=== PATIENT | male | born 1940 | race African-American/Black ===

== ENCOUNTER 2017-07-10 12:38 | Emergency (ER) | payer MEDICARE, MEDICAID ==
[~2017-07-10] VITALS: Ht 167.6 cm; Wt 87.0 kg
[~2017-07-10 12:38] MED LIST: ASPIRIN; METF10002 PO; METOPROLOL; NIACIN; TAMS-11
[2017-07-10 12:43] VITALS: BP 141/88
[2017-07-10] MEDS ORDERED: PREDNISONE 20MG TABLET PO STA (13:11)
[2017-07-10] MEDS ORDERED: IPRATROPIUM/ALBUTEROL 0.5-3(2.5)MG/3ML NEB HHN ONE (13:15)
[2017-07-10] MEDS ORDERED: LEVOFLOXACIN 250MG TABLET PO ONE (13:15)
[2017-07-10] MEDS ORDERED: IBUPROFEN 800MG TABLET PO ONE (13:15)
[2017-07-10 13:43] LABS: BG BASE EXCESS 1.1 mmol/L (-2.0-2.0); BG CARBOXYHEMOGLOBIN 0.6 % (0.5-1.5); BG DEOXYHEMOGLOBIN 4.5 % (0.0-5.0); BG FRACTION INSPIRED OXYGEN 21; BG HCO3 ACT 25.6 mmol/L (22.0-26.0); BG METHEMOGLOBIN 0.3 % (0.0-1.5); BG OXYGEN SATURATION 95.5 % (92.0-98.5); BG OXYHEMOGLOBIN 94.6 % (94.0-97.0); BG PCO2 40.2 mmHg (35.0-45.0); BG PH 7.422 (7.350-7.450); BG PO2 79.9 mmHg (75.0-100.0); BG SAMPLE SITE RIGHT RADIAL; BG TOTAL HEMOGLOBIN 12.9 g/dL (12.0-18.0); BG VENT MODE ROOM AIR
[2017-07-10 14:07] LABS: BASOPHILS % 0.2 % (0.0-2.0); EOSINOPHILS % 3.5 % (0.0-5.0); HEMATOCRIT. 35.8 % (42.0-52.0); LYMPHOCYTES % 39.9 % (20.0-50.0); MEAN CORPUSCULAR HEMOGLOBIN 29.4 pg (28.0-32.0); MEAN CORPUSCULAR VOLUME 87.7 fL (80.0-94.0); MEAN PLATELET VOLUME 9.4 fl (7.4-10.4); MONOCYTES % 9.7 % (2.0-8.0); NEUTROPHILS % 46.7 % (40.0-76.0); PLATELET 181 x1000/uL (130-400); RED BLOOD CELL COUNT 4.08 mill/uL (4.7-6.1); RED CELL DISTRIBUTION WIDTH 14.8 % (11.6-14.6)
[2017-07-10 14:16] LABS: INR 1.1; PARTIAL THROMBOPLASTIN TIME 23.4 sec (23.4-31.0)
[2017-07-10 14:25] LABS: CARBON DIOXIDE 32 mEq/L (21-32); CHLORIDE 107 mEq/L (98-107); CREATINE KINASE 156 IU/L (39-308); TROPONIN I < 0.02 ng/mL (0.00-0.04)
== END 2017-07-10 15:37 | disposition home or self-care (01) ==
LOC: ER 14:31
DX: J40 Bronchitis, not specified as acute or chronic (principal); E11.9 Type 2 diabetes mellitus without complications; I11.9 Hypertensive heart disease without heart failure; Z87.891 Personal history of nicotine dependence
CPT/HCPCS: 36415; 36600; 71010; 80053; 82375; 82550; 82805; 83605; 83690; 83880; 84443; 84484; 85025; 85610; 85730; 87040; 93005; 94640; 99285; J7512; J7620